=== PATIENT | male | born 1980 | race Caucasian/White ===

== ENCOUNTER 2021-02-27 19:28 | Emergency (ER) | payer OTHER, SELFPAY ==
--- NOTE | ~2021-02-27 | XR_ITS ---
[XR ribs LT 2V ] INDICATION: Left rib pain after recent injury TECHNIQUE: Frontal projection of the upper left ribs, frontal projection of the lower left ribs, obli que projection of all the left ribs. FINDINGS: There are no displaced rib fractures identified. There are no soft tissue abnormality see n. The lungs are clear. IMPRESSION: 1:No displaced rib fractures. Reviewed, dictated and finalized at location A.
[2021-02-27 19:41] VITALS: BP 132/81; PULSE 98; RESP 16; TEMP 37.1; O2SAT 99
--- NOTE | 2021-02-27 19:48 | ED.GENADULT ---
HPI - General Adult General Chief complaint: Unspecified Stated complaint: Rib Pain Time Seen by Provider: 02/27/21 19:48 Source: patient and RN notes reviewed Mode of arrival: ambulatory Limitations: no limitations History of Present Illness HPI narrative: 40-year-old male presents to the [facility] with complaints of left rib pain since Friday, 4 days. Patient states that he was practicing to just cathy when he got a elbow or head into the left ribs. Had a cracking sensation in the ribs. Has had pain since. No abdominal pain. No chest pain, chest wall pain with deep breathing and movement. Has taken Tylenol for his pain. Related Data Home Medications Medication Instructions Recorded Confirmed atorvastatin 20 mg PO DAILY 02/27/21 02/27/21 phentermine 37.5 mg PO DAILY 02/27/21 02/27/21 Allergies Allergy/AdvReac Type Severity Reaction Status Date / Time No Known Allergies Allergy Verified 02/27/21 20:04 Review of Systems Review of Systems: All systems reviewed & are unremarkable except as noted in HPI and below Constitutional: Constitutional: Reports no additional constitutional complaints and Denies body ache(s) Eyes: Eyes: Reports no additional eye complaints ENT: Reports system reviewed and no additional complaints, except as documented Cardiovascular: Cardiovascular: Reports no additional cardiovascular complaints and Denies chest pain Respiratory: Respiratory: Reports no additional respiratory complaints, Denies chest congestion, Denies cough, Reports pain on inspiration, Denies dyspnea, Denies dyspnea on exertion and Denies wheezing Gastrointestinal: Gastrointestinal: Reports no additional gastrointestinal complaints and Denies abdominal pain Musculoskeletal: Musculoskeletal: Reports as per HPI, Denies myalgias and Denies arthralgias Comments: Left lateral rib pain without swelling, bruising noted. Pain is worse with movement, twisting and when he takes deep breaths. Integumentary/Breasts: Skin/Breast: Reports system reviewed and no additional complaints, except as docu and Denies swelling Neurologic: Reports system reviewed and no additional complaints, except as documented Psychiatric: Psychiatric: Reports no additional psychiatric complaints Allergic/Immunologic: Allergic/Immunologic: Reports no additional allergic/immunologic complaints PMFSH Comments At the time of my signature, I reviewed and agree with the nursing past medical, surgical, social, and family history. There is no relevant family history pertinent to the patient complaint. Exam Const: General: cooperative, healthy appearing, no acute distress, well developed and alert Nutritional Appearance: well nourished Orientation/consciousness: patient oriented x3 Limitations: no limitations HENMT: Head: normal to inspection Ears: hearing grossly normal bilaterally General nose exam: Normal external nose present Eyes: General: appearance normal, both eyes and all related structures Pupils: Equal, round and reactive pupils present Neck: Neck: normal visual inspection, full ROM, no lymphadenopathy and trachea midline Chest: Chest palpation & inspection: normal inspection of the chest, no crepitus, tenderness and No rash Chest/axillae images: 1. Tenderness with movement and deep breathing. Resp: Effort & Inspection: normal respiratory effort, able to speak in complete sentences, no audible wheezes, no cough and respiratory effort not decreased Auscultation: clear to auscultation bilaterally Back/Spine/Pelvis: Back: no CVA tenderness Cervical Spine: normal cervical lordosis Thoracic/Lumbar Spine: thoracic and lumbar spine normal to inspection (Scar to the lumbar area from post laminectomy, scar well-healed) Skin: General skin exam: normal color, no rashes or lesions noted, no ecchymosis and no erythema Rashes: no rashes Neuro: General: patient oriented x3 Extrem: General: normal to inspection, full ROM, capillary refill normal
== END 2021-02-27 20:10 | disposition home or self-care (01) ==
PROVIDERS: Emergency Provider Nurse Practitioner
DX: S20.212A Contusion of left front wall of thorax, initial encounter (principal); W51.XXXA Accidental striking against or bumped into by another person, initial encounter; Y93.75 Activity, martial arts; E78.00 Pure hypercholesterolemia, unspecified
CPT/HCPCS: 71100; 99213; G0463